=== PATIENT | male | born 1965 | race Hispanic/Latino ===

== ENCOUNTER → 2019-10-24 | Outpatient (CLI) | payer OTHER | END | disposition home or self-care (01) | LOC: OIH 12:51 | PROVIDERS: ATTEND Internal Medicine Cardiovascular Disease | DX: Z13.6 Encounter for screening for cardiovascular disorders (principal) | CPT/HCPCS: 75571 ==

== ENCOUNTER 2020-03-21 11:51 | Observation (INO) | payer OTHER ==
[~2020-03-21] VITALS: Ht 185.4 cm; Wt 176.9 kg
[2020-03-21 12:24] LABS: BASOPHILS % (AUTO) 0.7 % (0.0-5.0); EOSINOPHILS % (AUTO) 4.6 % (0.0-8.0); HEMATOCRIT 46.5 % (42-54); LYMPHOCYTES % (AUTO) 25.1 % (21.0-51.0); MEAN CORPUSCULAR HEMOGLOBIN 22.5 pg (27.0-33.0); MEAN CORPUSCULAR HGB CONC 31.6 g/dL (32.0-36.0); MEAN CORPUSCULAR VOLUME 71.2 fL (79-99); MONOCYTES % (AUTO) 8.7 % (3.0-13.0); NEUTROPHILS % (AUTO) 60.6 % (40.0-77.0); PLATELET COUNT (AUTO) 347 K/uL (130-400); RED BLOOD CELL COUNT(AUTO) 6.53 MIL/uL (4.50-6.20); RED CELL DISTRIBUTION WIDTH 13.8 % (11.0-15.5); WHITE BLOOD COUNT (AUTO) 7.1 K/uL (4.8-10.8)
[2020-03-21 12:37] LABS: CREATININE 2.2 mg/dL (0.5-1.5); POTASSIUM 3.6 mmol/L (3.5-5.1)
[2020-03-21 12:46] LABS: ALBUMIN 3.9 g/dL (3.5-5.0); BILIRUBIN,TOTAL 0.3 mg/dL (0.2-1.0); TOTAL PROTEIN, SERUM 8.4 g/dL (6.0-8.3)
[2020-03-21 12:48] LABS: CREATINE KINASE, TOTAL 238 U/L (21-232); MYOGLOBIN 89 ng/mL (10-92); TROPONIN I < 0.04 ng/mL (0.00-0.06)
[2020-03-21 12:56] LABS: PROTHROMBIN TIME 10.7 SEC (9.6-11.6)
[2020-03-21 12:57] LABS: B-TYPE NATRIURETIC PEPTIDE 7 pg/mL (0-100)
[2020-03-21 12:58] LABS: PARTIAL THROMBOPLASTIN TIME 27.2 SEC (26.3-35.5)
[2020-03-21 12:59] LABS: APPEARANCE,URINE Clear (CLEAR); BILIRUBIN,URINE Negative (NEGATIVE); COLOR,URINE Yellow (YELLOW); GLUCOSE, URINE (UA) Negative (NEGATIVE); KETONES,URINE Negative (NEGATIVE); LEUKOCYTE ESTERASE ,URINE Negative (NEGATIVE); NITRATE,URINE Negative (NEGATIVE); OCCULT BLOOD,URINE Negative (NEGATIVE); PH,URINE 5.5 (5.0-8.0); PROTEIN,URINE Negative (NEGATIVE); UROBILINOGEN,URINE 0.2 mg/dL (0.2-1.0)
[2020-03-21] MEDS ORDERED: 0.9%NACL 1000ML 1,000 ML IV ONE (13:33)
[2020-03-21] MEDS ORDERED: HEPARIN 5,000 UNIT VIAL SQ ONE (16:00)
[2020-03-21] MEDS ORDERED: ACETAMINOPHEN 325 MG TAB PO PRN (16:00)
[2020-03-21] MEDS ORDERED: HEPARIN 5,000 UNIT VIAL ONE (17:18)
[2020-03-21] MEDS ORDERED: CARVEDILOL 6.25 MG TABLET PO ONE (20:33)
[2020-03-21] MEDS: CARVEDILOL 6.25 MG TABLET PO SCH (21:00)
[2020-03-22 05:27] LABS: BASOPHILS % (AUTO) 0.4 % (0.0-5.0); EOSINOPHILS % (AUTO) 3.7 % (0.0-8.0); HEMATOCRIT 41.9 % (42-54); LYMPHOCYTES % (AUTO) 26.6 % (21.0-51.0); MEAN CORPUSCULAR HGB CONC 32.5 g/dL (32.0-36.0); MEAN CORPUSCULAR VOLUME 70.8 fL (79-99); MONOCYTES % (AUTO) 9.7 % (3.0-13.0); NEUTROPHILS % (AUTO) 59.5 % (40.0-77.0); PLATELET COUNT (AUTO) 305 K/uL (130-400); RED BLOOD CELL COUNT(AUTO) 5.92 MIL/uL (4.50-6.20); RED CELL DISTRIBUTION WIDTH 13.3 % (11.0-15.5); WHITE BLOOD COUNT (AUTO) 7.2 K/uL (4.8-10.8)
[2020-03-22 05:36] LABS: CREATININE 1.1 mg/dL (0.5-1.5); POTASSIUM 3.7 mmol/L (3.5-5.1)
[2020-03-22 05:47] LABS: ALBUMIN 3.3 g/dL (3.5-5.0); BILIRUBIN,TOTAL 0.3 mg/dL (0.2-1.0); TOTAL PROTEIN, SERUM 7.4 g/dL (6.0-8.3)
[2020-03-22] MEDS ORDERED: CARVEDILOL 6.25 MG TABLET PO ONE (08:28)
[2020-03-22] MEDS ORDERED: FAMOTIDINE 20MG TAB ONE (08:28)
[2020-03-22] MEDS: CARVEDILOL 6.25 MG TABLET PO SCH ×2 (09:00→19:45)
[2020-03-22 10:18] VITALS: BP 163/89
[2020-03-22 11:00] VITALS: BP 163/96
[2020-03-22] MEDS: HEPARIN 5,000 UNIT VIAL SQ SCH ×3 (12:30→19:46)
[2020-03-22] MEDS: PANTOPRAZOLE 40 MG TAB DR PO SCH (13:58)
[2020-03-22 16:00] VITALS: BP_SYST 129; BP_SYST 151; BP_DIAS 63; BP_DIAS 77
[2020-03-22 19:00] VITALS: BP 145/73
[2020-03-23] VITALS: BP 125/70
[2020-03-23 04:00] VITALS: BP 117/59
[2020-03-23] MEDS: HEPARIN 5,000 UNIT VIAL SQ SCH (04:26)
[2020-03-23 06:40] LABS: BASOPHILS % (AUTO) 0.8 % (0.0-5.0); EOSINOPHILS % (AUTO) 3.7 % (0.0-8.0); HEMATOCRIT 43.4 % (42-54); LYMPHOCYTES % (AUTO) 30.2 % (21.0-51.0); MEAN CORPUSCULAR HEMOGLOBIN 22.6 pg (27.0-33.0); MEAN CORPUSCULAR HGB CONC 31.8 g/dL (32.0-36.0); MEAN CORPUSCULAR VOLUME 71.1 fL (79-99); MONOCYTES % (AUTO) 10.4 % (3.0-13.0); NEUTROPHILS % (AUTO) 54.7 % (40.0-77.0); PLATELET COUNT (AUTO) 315 K/uL (130-400); RED CELL DISTRIBUTION WIDTH 13.4 % (11.0-15.5); WHITE BLOOD COUNT (AUTO) 6.6 K/uL (4.8-10.8)
[2020-03-23 07:34] LABS: ALBUMIN 3.4 g/dL (3.5-5.0); BILIRUBIN,TOTAL 0.4 mg/dL (0.2-1.0); CREATININE 1.3 mg/dL (0.5-1.5); POTASSIUM 3.6 mmol/L (3.5-5.1); TOTAL PROTEIN, SERUM 7.6 g/dL (6.0-8.3)
[2020-03-23 08:00] VITALS: BP 164/89
[2020-03-23] MEDS: PANTOPRAZOLE 40 MG TAB DR PO SCH (10:14)
[2020-03-23] MEDS: CARVEDILOL 6.25 MG TABLET PO SCH (10:15)
[2020-03-23] MEDS ORDERED: PHARMACY COMMUNICATION MISC SCH ×2 (10:45→12:45)
[2020-03-23] MEDS ORDERED: RENAL DOSE IV SCH (10:45)
[2020-03-23 12:00] VITALS: BP 133/64
[2020-03-23] MEDS ORDERED: IOHEXOL-350 50ML VIAL IV ONE (12:10)
[2020-03-23] MEDS ORDERED: IOHEXOL 350 MG/ML 100ML INFUS..BTL IV ONE (12:10)
[2020-03-23] MEDS ORDERED: 0.9%NACL 1000ML 1,000 ML IV ONE (15:15)
[2020-03-23 16:00] VITALS: BP 144/77
[2020-03-23] MEDS ORDERED: OMEP10SU2 PO (16:01)
[2020-03-23] MEDS ORDERED: CARV6.2579 PO (16:01)
== END 2020-03-23 18:30 | disposition home or self-care (01) ==
LOC: EDH 11:51 → EDHIP 15:47 → 3DH 03-22 10:28
PROVIDERS: ADMIT Family Medicine; ATTEND Family Medicine
DX: R06.02 Shortness of breath (principal); Z20.828 Contact with and (suspected) exposure to other viral communicable diseases; I12.9 Hypertensive chronic kidney disease with stage 1 through stage 4 chronic kidney disease, or unspecified chronic kidney disease; N18.30 Chronic kidney disease, stage 3 unspecified; R79.1 Abnormal coagulation profile; E66.01 Morbid (severe) obesity due to excess calories; G47.33 Obstructive sleep apnea (adult) (pediatric); K21.9 Gastro-esophageal reflux disease without esophagitis; Z86.711 Personal history of pulmonary embolism; Z86.718 Personal history of other venous thrombosis and embolism; Z79.01 Long term (current) use of anticoagulants; Z79.899 Other long term (current) drug therapy; Z68.43 Body mass index [BMI] 50.0-59.9, adult
CPT/HCPCS: 36415 ×3; 71045; 71275; 80053 ×3; 81003; 82550; 83874; 83880; 84484; 85025 ×3; 85378; 85610; 85730; 87426; 93005; 93970; 96360; 96361; 96372 ×2; 99285; G0378 ×50; J1644 ×4; J7030 ×2; Q9967 ×2; U0003